=== PATIENT | male | born 1985 | race Caucasian/White ===

== ENCOUNTER 2017-11-27 11:34 | Emergency (ER) | payer SELFPAY ==
[~2017-11-27] VITALS: Ht 193 cm; Wt 80.0 kg
[2017-11-27] MEDS ORDERED: KETOROLAC 60 MG/2 ML VIAL. IM ONE (12:00)
[2017-11-27 12:19] VITALS: BP 148/85
--- NOTE | 2017-11-27 12:30 | RAD ---
Exam:Right ribs with PA chest Date: 11/27/2017 12:03 PM Comparison: No prior Indication: right rib pain x 2 days, patient fell Findings/ Impression: The heart is not enlarged. Mediastinal and hilar contours are normal. No focal parenchymal airspace opacity. No pleural effusion or pneumothorax. AP, Oblique and Spot images of right ribs are negative for acute displaced rib fracture. Negative focal pleural elevation. Symmetrical intercostal spacing. It is of note that an acute non-displaced rib fracture can be in-apparent on initial post-trauma imaging. Minimal offset of the right AC joint may represent age-indeterminate low-grade AC separation. IVC filter is partially profiled. Electronically signed by: Isael Lawler MD (11/27/2017 12:27 PM) [facility]
[2017-11-27] MEDS ORDERED: NAPR-683 PO (12:55)
[2017-11-27] MEDS ORDERED: CYCL-331 PO (12:55)
--- NOTE | 2017-11-27 12:56 | PHYS DOC ---
Past History Past Medical History: No Pertinent History Past Surgical History: No Surgical History Smoking: Cigarettes Alcohol Use: None Drug Use: None Adult General Chief Complaint Chief Complaint: RIB PAIN HPI HPI Patient is a 31 year old male who presents with complaining of lip pain. Patient states he had an accidental fall from 10 feet high ladder 8 days ago and landed on his back without loss of consciousness. Patient complaining of pain in right lower posterior chest for the last 8 days that getting worse with movement and taking deep breath. Patient states while he was at work today he felt severe pain in right posterior back and chest with the bad movement and had to hold his breath because of the pain. She denies fever and chills, focal neuro deficit, history of the same pain. Patient calls or 2 later on presented to ER and states he had bloody coughing and patient states he had string of fresh blood in his cough today without shortness of breath. Review of Systems Review of Systems Constitutional: Denies fever or chills [] Eyes: Denies change in visual acuity, redness, or eye pain [] HENT: Denies nasal congestion or sore throat [] Respiratory: Denies cough or shortness of breath [] Cardiovascular: No additional information not addressed in HPI [] GI: Denies abdominal pain, nausea, vomiting, bloody stools or diarrhea [] : Denies dysuria or hematuria [] Musculoskeletal: Denies back pain or joint pain [] Integument: Denies rash or skin lesions [] Neurologic: Denies headache, focal weakness or sensory changes [] Endocrine: Denies polyuria or polydipsia [] All other systems were reviewed and found to be within normal limits, except as documented in this note. Current Medications Current Medications Current Medications Medications (Trade) Dose Ordered Sig/[facility] Start Time Stop Time Status Last Admin Dose Admin Ketorolac Tromethamine (Toradol Im) 60 mg 1X ONCE 11/27/17 12:00 11/27/17 12:20 DC 11/27/17 12:30 60 MG Allergies Allergies Allergies Coded Allergies Type Severity Reaction Last Updated Verified No Known Drug Allergies 11/27/17 No Physical Exam Physical Exam Constitutional: Well developed, well nourished, mild distress, non-toxic appearance. [] HENT: Normocephalic, atraumatic, bilateral external ears normal, oropharynx moist, no oral exudates, nose normal. [] Eyes: PERRLA, EOMI, conjunctiva normal, no discharge. [] Neck: Normal range of motion, no tenderness, supple, no stridor. [] Cardiovascular:Heart rate regular rhythm, no murmur [] Lungs & Thorax: Bilateral breath sounds clear to auscultation no contusion or deformity or subcutaneous emphysema on chest wall[] Abdomen: Bowel sounds normal, soft, no tenderness, no masses, no pulsatile masses. [] Skin: Warm, dry, no erythema, no rash. [] Back: No tenderness, no CVA tenderness. [] Extremities: No tenderness, no cyanosis, no clubbing, ROM intact, no edema. [] Neurologic: Alert and oriented X 3, normal motor function, normal sensory function, no focal deficits noted. [] Psychologic: Affect normal, judgement normal, mood normal. [] Current Patient Data Vital Signs Vital Signs Date Time Temp Pulse Resp B/P (MAP) Pulse Ox O2 Delivery O2 Flow Rate FiO2 11/27/17 12:19 98.2 76 20 100 Room Air EKG EKG [] Radiology/Procedures Radiology/[place] [address] IMAGING REPORT Signed PATIENT: RAUDEL FRANKS ACCOUNT: [id number] : 1985 LOCATION: ER AGE: 31 SEX: M EXAM STATUS: PRE ER ORD. PHYSICIAN: JUANITA STARKS MD REASON: injury PROCEDURE: RIBS RIGHT AND PA CHEST Exam:Right ribs with PA chest Date: 11/27/2017 12:03 PM Comparison: No prior Indication: right rib pain x 2 days, patient fell Findings/ Impression: The heart is not enlarged. Mediastinal and hilar contours are normal. No focal parenchymal airspace opacity. No pleural effusion or pneumothorax. AP, Oblique and Spot images of right ribs are negative for acute displaced rib fracture. Negative focal pleural elevation. Symmetrical intercostal spacing. It is of note that an acute non-displaced rib fracture can be in-apparent on initial post-trauma imaging. Minimal offset of the right AC joint may represent age-indeterminate low-grade AC separation. IVC filter is partially profiled. Electronically signed by: Isael Lawler MD (11/27/2017 12:27 PM) [facility] DICTATED AND SIGNED BY: ISAEL LAWLER MD DATE: 11/27/17 3657 CC: JUANITA STARKS MD; PCP,NO ~ Course & Med Decision Making Course & Med Decision Making Pertinent Labs and Imaging studies reviewed. (See chart for details) Evaluation of patient in ER showed 31-year-old male patient with complaining of injury to his chest is unremarkable physical exam and x-ray. Patient instructed to quit smoking and apply ice on the affected area and follow up with his primary care physician. Dragon Disclaimer Dragon Disclaimer This electronic medical record was generated, in whole or in part, using a voice recognition dictation system. Departure Departure: Impression: Primary Impression: Tobacco abuse counseling Additional Impressions: Tobacco abuse Chest wall contusion Disposition: HOME, SELF-CARE (at 1252) Condition: IMPROVED Referrals: [facility] (PCP) Patient Instructions: Chest Contusion, Smoking Cessation, Tips For Success Additional Instructions: Apply ice on the affected area Follow-up with your primary care physician in 3-5 days Return to ER if not getting better Scripts Naproxen (NAPROSYN) 500 Mg Tablet 1 TAB PO BID PRN for PAIN, #20 TAB Prov: JUANITA STARKS MD 11/27/17 Cyclobenzaprine Hcl (CYCLOBENZAPRINE HCL) 10 Mg Tablet 1 TAB PO TID, #30 TAB Prov: JUANITA STARKS MD 11/27/17 Problem Qualifiers JUANITA STARKS MD Nov 27, 2017 12:56
== END 2017-11-27 13:00 | disposition home or self-care (01) ==
LOC: ER 11:34
DX: S20.211A Contusion of right front wall of thorax, initial encounter (principal); F17.210 Nicotine dependence, cigarettes, uncomplicated; K13.0 Diseases of lips; M54.89 Other dorsalgia; Z71.6 Tobacco abuse counseling; W11.XXXA Fall on and from ladder, initial encounter; Y93.89 Activity, other specified; Y92.89 Other specified places as the place of occurrence of the external cause; Y99.8 Other external cause status
CPT/HCPCS: 71101; 96372; 99284; J1885